=== PATIENT | male | born 1950 | race Caucasian/White ===

== ENCOUNTER 2018-10-31 07:42 | Day surgery (SDC) | payer BC, OTHER ==
[2018-10-24 15:52] VITALS: BMI 21.6
[2018-10-31] MEDS ORDERED: PROPOFOL 20 ML ONE ×2 (08:12)
[2018-10-31 08:55] VITALS: TEMP 97.8
[2018-10-31 09:18] VITALS: BP 126/78; PULSE 69
== END 2018-10-31 09:20 | disposition home or self-care (01) ==
LOC: FASU-ENDO 07:42
PROVIDERS: ATTEND Internal Medicine Gastroenterology
PROC: 0DJD8ZZ Inspection of Lower Intestinal Tract, Via Natural or Artificial Opening Endoscopic (ICD-10-PCS; principal; 2018-10-31 08:28)
DX: Z12.11 Encounter for screening for malignant neoplasm of colon (principal); K57.30 Diverticulosis of large intestine without perforation or abscess without bleeding